=== PATIENT | male | born 1980 | race Two or more races ===

== ENCOUNTER 2021-06-10 08:11 | Outpatient (REF) | payer OTHER, SELFPAY ==
[2021-06-10 08:47] LABS: MANUAL DIFF FLAG NO
[2021-06-10 09:28] LABS: Basophils Percent Auto 0.4 % (0-2); Eosinophils Absolute Auto 0.2 X10*3/uL (0.0-0.4); Eosinophils Percent Auto 2.4 % (0-4); Hematocrit 46.2 % (42.0-52.0); Imm Gran Abs Auto 0.05 X10*3/uL (0.00-0.03); Imm Gran Pct Auto 0.7 % (0.0-0.4); Lymphocytes Absolute Auto 2.1 X10*3/uL (1.2-4.9); Lymphocytes Percent Auto 28.9 % (20-40); Mean Corpuscular HGB Conc 32.5 g/dl (31.0-36.0); Mean Corpuscular Hemoglobin 31.1 pg (27.0-33.0); Mean Corpuscular Volume 95.9 fL (80.0-98.0); Mean Platelet Volume 10.3 fL (9.4-12.4); Monocytes Absolute Auto 0.6 X10*3/uL (0.1-1.2); Monocytes Percent Auto 8.6 % (2-11); Neutrophils Absolute Auto 4.2 x10*3/uL (2.0-8.3); Platelet Count 312 X10*3/uL (160-400); Red Blood Count 4.82 X10*6/uL (4.60-5.80); Red Cell Distribution Width 13.7 % (11.0-16.0); White Blood Count 7.1 X10*3/uL (4.8-10.8)
[2021-06-10 09:58] LABS: Alanine Aminotransferase 69 U/L (0-40); Albumin Level 4.3 g/dL (3.5-5.0); Alkaline Phosphatase 73 U/L (39-117); Anion Gap 15 (12-20); Aspartate Amino Transferase 38 U/L (5-37); Bilirubin Total 0.7 mg/dL (0.0-1.0); Blood Urea Nitrogen 9 mg/dL (9-16); Calcium 9.5 mg/dL (8.4-10.2); Carbon Dioxide 28 mmol/L (22-29); Chloride 99 mmol/L (96-108); Cholesterol 259 mg/dL; Estimated Glomerular Filt Rate > 60; Glucose Fasting 87 mg/dL (60-99); HDL Cholesterol 46 mg/dL; LDL Cholesterol Calculated 152 mg/dl; Potassium 4.2 mmol/L (3.3-5.1); Sodium 138 mmol/L (135-145); Total Protein 7.5 g/dL (6.5-8.0); Triglycerides 307 mg/dL
[2021-06-10 10:19] LABS: TSH reflex Free T4 3.16 uIU/mL (0.32-4.0)
== END 2021-06-10 08:12 | disposition home or self-care (01) ==
LOC: HO.LAB 08:11
PROVIDERS: PCP Nurse Practitioner Family; Visit Provider Nurse Practitioner Family
DX: I10 Essential (primary) hypertension (principal); E78.00 Pure hypercholesterolemia, unspecified; G47.30 Sleep apnea, unspecified; Z76.89 Persons encountering health services in other specified circumstances
CPT/HCPCS: 36415; 80053; 80061; 84443; 85025

== ENCOUNTER 2022-10-28 08:54 | Outpatient (AMB) | payer OTHER, SELFPAY ==
[2022-10-28 08:59] VITALS: BP 128/80; PULSE 71; O2SAT 95; BMI 35.9
--- NOTE | 2022-10-28 08:59 | A.OFFPC_ITS ---
Vital Signs 10/28/22 08:59 Height 5 ft 5.5 in Weight 219 lb 6 oz BMI 35.9 BP 128/80 Blood Pressure Location Lt brachial Position Sitting Pulse 71 Pulse Source Pulse Oximeter Pulse Oximetry (%) 95 Oxygen Delivery Method Room Air Intake Visit Reasons: Transfer of care from [facility] / sleep Apnea Test Allergies No Known Allergies Allergy (Verified 10/28/22 09:09) Medication List - Last Reconciled 10/28/22 by EILEEN Rivera blood pressure monitor As directed Tobacco use date assessed: 10/28/22 HPI HPI Comments History of Present Illness Details 42-year-old male past medical history significant for hypertension, mild anxiety, alcohol abuse and sleep apnea. Patient last seen May 2021, patient presents today for transfer of care. Patient states he is told he snores at night and reports his mom recorded him having a period of apnea while sleeping in April. Denies CP, palpiataions,sob and syncope. Patient reports daily headaches. Left sided chest burning and occasionally a sharp pain, last occurred 1 week ago. patient reports takes a tums and resolved. Will obtain EKG to Further evaluate. 2-3 drinks per month, Patient states stopped one month ago previous drank 5 nips 5 days a week. 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 1. Little interest or pleasure in doing things: not at all 2. Feeling down, depressed, or hopeless: not at all 3. Trouble falling or staying asleep, or sleeping too much: not at all 4. Feeling tired or having little energy: not at all 5. Poor appetite or overeating: not at all 6. Feeling bad about yourself - or that you are a failure or have let yourself or your family down: not at all 7. Trouble concentrating on things, such as reading the newspaper or watching television: not at all 8. Moving or speaking so slowly that other people could have noticed. Or the opposite - being so fidgety or restless that you have been moving around a lot more than usual: not at all 9. Thoughts that you would be better off or of hurting yourself in some way: not at all Total score: 0 Depression Screening Interpretation: Negative 60856 - PHQ-9 Billing: Yes Source: Developed by Drs. Dashawn Chavez, Yanet Martines, Alan Andre and colleagues, with an educational titus from [employer]. Thrive Questionnaire Date Thrive assessed: 10/28/22 I am a: Patient What is your living situation today?: I have a steady place to live Within the past 12 months, did the food you bought not last and you didn't have the money to get more?: Never true Within the past 12 months, did you worry whether your food would run out before you got money to buy more?: Never true AUDIT C Alcohol Use Questionnaire (AUDIT-C) 1. How often do you have a drink containing alcohol?: 2-4 times a month 2. How many drinks containing alcohol do you have on a typical day when you are drinking?: 3 or 4 3. How often do you have six or more drinks on one occasion?: Less than monthly Total Score: 4 SILVERIO-7 AMB Questionnaire SILVERIO-7 Date SILVERIO - 7 assessed: 10/28/22 Feeling nervous, anxious, or on edge: 1 = Several days Not being able to stop or control worryin = Not at all Worrying too much about different things: 0 = Not at all Trouble relaxin = Not at all Being so restless that it is hard to sit still: 0 = Not at all Becoming easily annoyed or irritable: 1 = Several days Feeling afraid as if something awful might happen: 0 = Not at all Total SILVERIO-7 score (0-4 normal; 5-9 mild; 10-14 moderate; 15-21 severe): 2 Source: Developed by Drs. Dashawn Chavez, Yanet Martines, Alan Andre and colleagues, with an educational titus from [employer]. SILVERIO-7 Assessment Billing SILVERIO-7 Assessment Tool: SILVERIO-7 Assessment 71664 Review of Systems Const Denies chills, Denies fatigue, Denies fever(s) and Denies poor appetite Eyes Denies no additional complaints ENT Reports Normal hearing present Card Denies chest pain, Denies syncope, Denies rapid heart rate and Denies dyspnea Resp Denies cough and Denies dyspnea GI Denies change in stool character, Denies constipation, Denies diarrhea, Denies nausea and Denies vomiting Denies dysuria, Denies urinary frequency and Denies urinary urgency Neuro Reports Normal hearing present, Denies confusion and Denies syncope Psych Denies confusion Endo Denies fatigue Physical exam (Primary Care) Vital Signs: Last Vital Signs Pulse 71 10/28/22 08:59 BP 128/80 10/28/22 08:59 Pulse Ox 95 10/28/22 08:59 Oxygen Delivery Method Room Air 10/28/22 08:59 BMI result Body Mass Index 35.9 Tobacco/Smoking Status: Tobacco use Status Tobacco use date assessed 10/28/22 10/28/22 09:04 Patient Tobacco Use Status Former Tobacco user 10/28/22 09:04 e-Cigarette/Vaping Use Never Used 10/28/22 09:04 PHQ-9: PHQ-9 Score PHQ-9: Total score 0 10/28/22 09:04 Depression Screening Interpretation: Negative Thrive Assessment: Date of Thrive Assessment Date Thrive assessed 10/28/22 10/28/22 09:04 Const General: No confusion Orientation/consciousness: No confusion HENMT Head: Yes normocephalic and Yes atraumatic Eyes Conjunctivae: conjunctivae normal Chest Chest palpation & inspection: normal inspection of the chest Resp Effort & Inspection: normal respiratory effort Auscultation: clear to auscultation bilaterally, no crackles, no rhonchi and no wheezes Cardio Rate: regular rate Rhythm: regular rhythm Heart sounds: S1 normal heart sound present and S2 normal heart sound present GI Inspection: Yes normal to inspection Neuro General: No confusion Cranial nerves: Yes Normal hearing present Extrem General: No edema Assessment and Plan Assessment & Plan (1) Essential hypertension: Code(s): I10 - Essential (primary) hypertension Plan: Patient currently taking any blood pressure medication blood pressure 128/80. Follow low-salt diet and exercise. (2) Sleep apnea: Code(s): G47.30 - Sleep apnea, unspecified Plan: Will obtain at-home sleep study to further evaluate for sleep apnea. (3) Dyspepsia: Code(s): R10.13 - Epigastric pain Plan: Avoid the foods that cause that, usually spicy foods, tomato products, juices, coffee, soda and foods that you're sensitive to.? After eating do not lie down, allow 3-4 hours before lying down. And keep the head of the bed above 30 degrees to avoid the acid from going up. Can continue take [id number] Tums as needed, if no improvement follow up with pcp and will consider PPI therapy. (4) Atypical chest pain: Code(s): R07.89 - Other chest pain Plan: Given patient states left-sided chest burning resolved by Tums likely related to dyspepsia. However will obtain EKG to exclude cardiac cause. Save symptoms reviewed with patient when to seek emergency medical attention. Plan Follow-up in 3 months for complete physical exam. Orders: Orders Comprehensive [place]. Panel Fast Today I10 - Essential (primary) hypertension Complete Blood Count Auto Diff Today Z13.0 - Encounter for screening for diseases of the blood and blood-forming organs and certain disorders involving the immune mechanism RT home sleep study Today G47.30 - Sleep apnea, unspecified Hemoglobin A1c Today Z83.3 - Family history of diabetes mellitus Lipid Panel Today Z13.220 - Encounter for screening for lipoid disorders TSH reflex Free T4 Today Z13.29 - Encounter for screening for other suspected endocrine disorder ECG 12 lead EKG Today R07.89 - Other chest pain, R10.13 - Epigastric pain Coding Level of Care Code Est Pt Level 3 (37411) Diagnoses Essential hypertension I10 Sleep apnea G47.30 Dyspepsia R10.13 Atypical chest pain R07.89 Additional Codes SILVERIO-7 Assessment Billing - SILVERIO-7 Assessment Tool: SILVERIO-7 Assessment 61956 ([id number])
== END 2022-10-28 09:28 | disposition home or self-care (01) ==
PROVIDERS: PCP Nurse Practitioner Family; Visit Provider Nurse Practitioner Family
DX: I10 Essential (primary) hypertension (principal); G47.30 Sleep apnea, unspecified; R10.13 Epigastric pain; R07.89 Other chest pain
CPT/HCPCS: 99213

== ENCOUNTER → 2022-11-10 10:00 | Outpatient (REF) | payer OTHER, SELFPAY ==
--- NOTE | 2022-11-10 10:05 | ECG_ITS ---
Test Reason : OTHER CP Blood Pressure : / mmHG Vent. Rate : 070 BPM Atrial Rate : 070 BPM P-R Int : 128 ms QRS Dur : 094 ms QT Int : 430 ms P-R-T Axes : 268 -31 030 degrees QTc Int : 464 ms Unusual P axis and short SD, probable junctional rhythm Left axis deviation Abnormal ECG No previous ECGs available Referred By: Idania Perkins Electronically Signed By:KIMBERLY JOHNSON
== END ==
LOC: HO.CARD 10:00
PROVIDERS: PCP Nurse Practitioner Family; Visit Provider Nurse Practitioner Family
DX: R07.89 Other chest pain (principal); R10.13 Epigastric pain
CPT/HCPCS: 93005

== ENCOUNTER 2022-11-11 08:59 | Outpatient (REF) | payer OTHER, SELFPAY ==
[2022-11-11 09:10] LABS: MANUAL DIFF FLAG NO
[2022-11-11 09:30] LABS: Basophils Percent Auto 0.7 % (0-2); Eosinophils Absolute Auto 0.1 X10*3/uL (0.0-0.4); Eosinophils Percent Auto 1.9 % (0-4); Hematocrit 44.7 % (42.0-52.0); Hemoglobin 15.1 g/dl (14.0-18.0); Imm Gran Abs Auto 0.02 X10*3/uL (0.00-0.03); Imm Gran Pct Auto 0.3 % (0.0-0.4); Lymphocytes Absolute Auto 1.8 X10*3/uL (1.2-4.9); Lymphocytes Percent Auto 31.2 % (20-40); Mean Corpuscular HGB Conc 33.8 g/dl (31.0-36.0); Mean Corpuscular Hemoglobin 30.8 pg (27.0-33.0); Mean Platelet Volume 10.8 fL (9.4-12.4); Monocytes Absolute Auto 0.5 X10*3/uL (0.1-1.2); Monocytes Percent Auto 8.5 % (2-11); Neutrophils Absolute Auto 3.3 x10*3/uL (2.0-8.3); Neutrophils Percent Auto 57.4 % (45-73); Platelet Count 262 X10*3/uL (160-400); Red Blood Count 4.91 X10*6/uL (4.60-5.80); Red Cell Distribution Width 13.4 % (11.0-16.0); White Blood Count 5.8 X10*3/uL (4.8-10.8)
[2022-11-11 09:36] LABS: Estimated Average Glucose 117 mg/dL; Hemoglobin A1c % 5.7 % (<6.0)
[2022-11-11 10:15] LABS: Alanine Aminotransferase 52 U/L (0-40); Albumin Level 4.4 g/dL (3.5-5.0); Alkaline Phosphatase 65 U/L (39-117); Anion Gap 16 (12-20); Aspartate Amino Transferase 39 U/L (5-37); Bilirubin Total 0.7 mg/dL (0.0-1.0); Blood Urea Nitrogen 8 mg/dL (9-16); Calcium 9.6 mg/dL (8.4-10.2); Carbon Dioxide 25 mmol/L (22-29); Chloride 104 mmol/L (96-108); Cholesterol 248 mg/dL (<200); Estimated Glomerular Filt Rate > 60; Glucose Fasting 97 mg/dL (60-99); HDL Cholesterol 39 mg/dL (>40); LDL Cholesterol Calculated 139 mg/dL (<100); Potassium 3.5 mmol/L (3.3-5.1); Sodium 141 mmol/L (135-145); Total Protein 7.7 g/dL (6.5-8.0); Triglycerides 354 mg/dL (<150)
[2022-11-11 10:30] LABS: TSH reflex Free T4 0.55 uIU/mL (0.32-4.0)
== END 2022-11-11 09:00 | disposition home or self-care (01) ==
LOC: HO.LAB 08:59
PROVIDERS: PCP Nurse Practitioner Family; Visit Provider Nurse Practitioner Family
DX: I10 Essential (primary) hypertension (principal); Z13.0 Encounter for screening for diseases of the blood and blood-forming organs and certain disorders involving the immune mechanism; Z13.29 Encounter for screening for other suspected endocrine disorder; Z83.3 Family history of diabetes mellitus; Z13.220 Encounter for screening for lipoid disorders
CPT/HCPCS: 36415; 80053; 80061; 83036; 84443; 85025

== ENCOUNTER → 2022-12-08 10:56 | Outpatient (REF) | payer OTHER, SELFPAY | LOC: HO.SL 10:56 | PROVIDERS: PCP Nurse Practitioner Family; Visit Provider Nurse Practitioner Family | DX: G47.30 Sleep apnea, unspecified (principal) | CPT/HCPCS: 95806 ==

== ENCOUNTER → 2022-12-08 11:05 | Outpatient (BNV) | payer OTHER, SELFPAY | PROVIDERS: PCP Nurse Practitioner Family; Visit Provider Psychiatry & Neurology Neurology | DX: G47.33 Obstructive sleep apnea (adult) (pediatric) (principal) | CPT/HCPCS: 95806 ==

== ENCOUNTER 2022-12-16 09:46 | Outpatient (REF) | payer OTHER, SELFPAY ==
[2022-12-21 16:22] LABS: Metanephrine, Free 87 pg/mL (<=57); Normetanephrines, Free 327 pg/mL (<=148); Total Metanephrine, Free 414 pg/mL (<=205)
== END 2022-12-16 09:47 | disposition home or self-care (01) ==
LOC: HO.LAB 09:46
PROVIDERS: PCP Nurse Practitioner Family; Visit Provider Internal Medicine Cardiovascular Disease
DX: I10 Essential (primary) hypertension (principal); R94.31 Abnormal electrocardiogram [ECG] [EKG]; R00.2 Palpitations; G47.30 Sleep apnea, unspecified
CPT/HCPCS: 36415; 83835; 93005

== ENCOUNTER 2022-12-16 09:46 | Outpatient (AMB) | payer OTHER, SELFPAY ==
--- NOTE | 2022-12-16 09:49 | A.OFFVIS_ITS ---
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 He said about 2 years ago he had come to the emergency room because he was not feeling well at that time was diagnosed with elevated blood pressure. He was then started on amlodipine but started having more symptoms with rapid heart rate at that time he discontinue medicines. Since then he is currently not on any medication but monitors blood pressure at home and notices that sometimes blood pressure is 150/120 at home. However today when he comes here his blood pressure is within normal range. He almost constantly feels that his heart is in overt Dr. And beating rapid. He comes in today and is in sinus tachycardia. He had a sleep study recently which he was not aware of the result but this shows severe sleep apnea. Sleep study was triggered because on a recent vacation with his mom he was noted to have significant sleep disordered breathing. He said he feels very sleepy and fatigued throughout the day when he is working. 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 He has also stopped using alcohol. He denies any other cardiac symptoms of exertional chest pain or shortness of breath. Denies any orthopnea, PND, leg edema. Denies any prolonged irregular heartbeat. 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 [employer] Cognitive needs: No Hearing needs: No Vision needs: Yes (glasses) Review of Systems Const Denies chills, Denies daytime sleepiness, Denies fatigue, Denies fever(s), Denies frequent falls, Denies poor appetite, Denies snoring, Denies stops breathing during sleep, Denies weakness, Denies weight gain and Denies weight loss Eyes Denies loss of vision ENT Denies dizziness and Denies hearing loss Card Denies chest pain, Denies claudication, Denies leg edema, Denies lightheadedness, Denies palpitations, Denies dyspnea, Denies dyspnea on exertion and Denies orthopnea Resp Denies cough, Denies excessive phlegm production, Denies dyspnea, Denies dyspnea on exertion, Denies snoring and Denies wheezing GI Denies abdominal pain, Denies hematochezia, Denies change in bowel habits, Denies nausea and Denies vomiting Denies dysuria and Denies urinary frequency Musc Denies arthralgias, Denies muscle weakness, Denies numbness and Denies other (frequent falls) Skin/Breast Denies nail changes and Denies rash Neuro Denies Abnormal speech present, Denies dizziness, Denies frequent falls, Denies loss of vision, Denies memory loss, Denies numbness and Denies weakness Psych Denies depression and Denies memory loss Endo Denies fatigue and Denies palpitations Levi/Lymph Reports easy bruising and Reports other (anemia) Aller/Immun Denies wheezing Physical Exam Vital Signs: Last Vital Signs Pulse 107 H 12/16/22 09:50 BP 128/84 12/16/22 09:50 BMI result Body Mass Index 36.1 Const General: cooperative, comfortable, no acute distress, alert, awake and tired appearing Nutritional Appearance: obese Orientation/consciousness: patient oriented x3 Limitations: no limitations HEENT Head: Yes normocephalic and Yes atraumatic Neck Neck: Yes trachea midline, Yes supple and Yes no JVD Resp Effort & Inspection: normal respiratory effort Auscultation: clear to auscultation bilaterally Cardio Jugular venous distension: no JVD Palpation: normal PMI Rhythm: regular rhythm Heart sounds: S1 normal heart sound present, S2 normal heart sound present, no click, no gallops, no murmurs and no rubs Peripheral pulses: Peripheral pulses 2+ throughout GI Inspection: Yes obesity Auscultation: normal bowel sounds Skin General skin exam: no rashes or lesions noted Neuro General: patient oriented x3 and no focal motor deficits Speech: No Abnormal speech present Extrem General: Yes no clubbing, cyanosis or edema Office Procedures EKG Details: EKG shows sinus tachycardia with left axis deviation suggestive left anterior fascicular block with incomplete right bundle-branch block with anterior and high lateral T-wave changes could represent RV strain and or LVH with repolarization abnormality [id number], Complete Assessment & Plan Assessment & Plan (1) Abnormal EKG: Code(s): R94.31 - Abnormal electrocardiogram [ECG] [EKG] Plan: Abnormal EKG in this young male could be related to hypertension related changes as well as and possibly RV dilatation and strain pattern related to his untreated sleep apnea. His blood pressure today is well optimized advised to monitor blood pressure at home maintain a log. Advised to bring his blood pressure machine to the office visit to correlate blood pressure changes. At th is point time would like to obtain echocardiogram to evaluate LV systolic and diastolic function to evaluate for LVH as well as RV size and systolic function to evaluate for pulmonary hypertension paced on the EKG. However treatment should be directed to worse treating his significant sleep apnea. See below. (2) Palpitations: Code(s): R00.2 - Palpitations Plan: Patient was having symptoms of palpitation noted to have sinus tachycardia. This is most likely related to his untreated sleep apnea leading to sympathetic activation. Would avoid treating this with medications but guide treatment with underlying sleep apnea. Advised to avoid all stimulants such as caffeine and alcohol in any form. Advised to increase fluid intake. Also advised to watch salt in his diet in will help with his blood pressure management. Will obtain Holter monitor to rule out other arrhythmias such as atrial fibrillation. (3) Sleep apnea: Code(s): G47.30 - Sleep apnea, unspecified Plan: Patient has significant sleep apnea which is is primary health problem at this point time driving his tachycardia as well as high blood pressure. Recommend as per home sleep study was to perform main lab sleep study with CPAP titration. Will also urgently referred to sleep specialty for initiating of treatment. I think he will benefit significantly with management of his sleep apnea. Also advised participate in aggressive weight loss program. Will follow up in the clinic in 4 weeks time, sooner p.r.n.. Thank you for allowing me to partake in his care Orders: Orders RT PSG in-lab sleep titration 1 Day G47.30 - Sleep apnea, unspecified Metanephrines, Plasma Today I10 - Essential (primary) hypertension CA echo transthoracic complete Today R94.31 - Abnormal electrocardiogram [ECG] [EKG] ECG holter monitor 48 hour Today R00.2 - Palpitations Referrals Sleep Medicine Referral G47.30 - Sleep apnea, unspecified Coding Level of Care Code New Pt Level 4 (68713) Diagnoses Abnormal EKG R94.31 Palpitations R00.2 Sleep apnea G47.30 CPT Codes EKG - CPT: 00725-Llergbzkerizxmaxt, Complete ([id number])
[2022-12-16 09:50] VITALS: BP 128/84; PULSE 107; BMI 36.1
== END 2022-12-16 10:15 | disposition home or self-care (01) ==
PROVIDERS: PCP Nurse Practitioner Family; Visit Provider Internal Medicine Cardiovascular Disease
DX: R94.31 Abnormal electrocardiogram [ECG] [EKG] (principal); R00.2 Palpitations; G47.30 Sleep apnea, unspecified
CPT/HCPCS: 93010; 99204

== ENCOUNTER 2022-12-24 13:09 | Outpatient (AMB) | payer OTHER, SELFPAY ==
[2022-12-24 13:15] VITALS: BP 126/70; PULSE 99; O2SAT 94; BMI 36.2
--- NOTE | 2022-12-24 13:15 | MHC.OFFVIS ---
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 He was referred by cardiology for pulmonary evaluation after home sleep study revealed an AHI of 43 with nocturnal hypoxemia. He reports significant daytime fatigue, morning headaches and witnessed apneas. He is also in the process of a cardiac evaluation, awaiting echo and holter monitor, which are scheduled in the next few weeks. He reports intermittent dyspnea with moderate exertion, otherwise denies any respiratory symptoms. He denies any personal history of respiratory conditions. He reports mother with NIEVES, denies any other pertinent family history. 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 Cognitive needs: No Hearing needs: No Vision needs: Yes (glasses) Review of Systems Const Denies chills, Denies excessive sweating, Denies fever(s), Denies headache(s) and Denies night sweats Eyes Denies dry eyes, Denies irritation and Denies itchy eyes ENT Reports Normal hearing present and Denies headache(s) Card Denies chest pain, Denies chest pain at rest, Denies chest pain with activity, Denies claudication, Denies leg edema, Denies dyspnea, Denies orthopnea and Denies paroxysmal nocturnal dyspnea Resp Denies chest congestion, Denies cough, Denies excessive phlegm production, Denies pain on inspiration, Denies pain with cough, Denies dyspnea, Denies stridor and Denies wheezing Musc Denies myalgias Neuro Reports Normal hearing present and Denies headache(s) Endo Denies excessive sweating Levi/Lymph Denies lymphadenopathy Aller/Immun Denies itchy eyes, Denies seasonal rhinorrhea and Denies wheezing Physical Exam Vital Signs: Last Vital Signs Pulse 99 12/24/22 13:15 BP 126/70 12/24/22 13:15 Pulse Ox 94 12/24/22 13:15 Oxygen Delivery Method Room Air 12/24/22 13:15 BMI result Body Mass Index 36.2 Const General: cooperative, healthy appearing, comfortable, no acute distress, well developed and alert Nutritional Appearance: obese Orientation/consciousness: patient oriented x3 Limitations: no limitations HEENT Head: Yes normal to inspection, Yes normocephalic and Yes atraumatic Ears: hearing grossly normal bilaterally and external ears normal Eyes General: appearance normal, both eyes and all related structures Eyelids: Yes eyelids normal Sclerae: sclerae normal EOM: EOMs intact bilaterally Neck Neck: Yes normal visual inspection and Yes no lymphadenopathy Lymphatic: no lymphadenopathy noted Chest Chest palpation & inspection: normal inspection of the chest Resp Effort & Inspection: normal respiratory effort, able to speak in complete sentences, no audible wheezes, no cough, no stridor, not tachypneic, no tripod positioning and no use of accessory muscles Auscultation: clear to auscultation bilaterally Cardio Jugular venous distension: no JVD Rate: regular rate Rhythm: regular rhythm Skin Other: warm, dry General skin exam: no rashes or lesions noted Neuro General: patient oriented x3 Cranial nerves: Yes Normal hearing present Cognition (Neuro): normal cognition Gait exam (Neuro): Normal gait present Extrem General: Yes normal to inspection, Yes capillary refill normal, Yes no clubbing, cyanosis or edema and Yes no pedal edema Psych Appearance: grossly normal and well kempt Speech and movement: Normal speech and movement present and Clear speech present Affect: normal affect Attitude: cooperative Thought process: Normal thought process present Thought content: Normal thought content present Insight: Good insight present (Psych) Judgement: Good judgement present (Psych) Results Reviewed Results Reviewed: Assessment & Plan Assessment & Plan (1) Severe obstructive sleep apnea: Comment: with nocturnal hypoxemia, average O2 76% Code(s): G47.33 - Obstructive sleep apnea (adult) (pediatric) (2) Dyspnea on exertion: Code(s): R06.09 - Other forms of dyspnea (3) Obesity (BMI 30-39.9): Code(s): E66.9 - Obesity, unspecified Plan Reviewed sleep study results with patient which revealed an AHI of 43, severe obstructive sleep apnea, with an average oxygen saturation of 76%, lowest 46%. Given the severity, combined with persistent nocturnal hypoxemia, an in lab titration study is recommended and has been ordered already by cardiology. This is scheduled in 4 weeks. Discussed the effects of untreated sleep apnea and importance of compliance with CPAP therapy. Will also send for PFT to evaluate for any underlying chronic respiratory disease. Discussed importance of weight loss and management of hypertension. All questions were answered and patient is in agreement of plan. Will follow up with patient after to review results and start on CPAP therapy. Orders: Orders PFT pulmonary function test Today R06.09 - Other forms of dyspnea Coding Level of Care Code New Pt Level 4 (84626) Diagnoses Severe obstructive sleep apnea G47.33 Dyspnea on exertion R06.09 Obesity (BMI 30-39.9) E66.9
== END 2022-12-24 13:47 | disposition home or self-care (01) ==
LOC: HO.HPSW 13:09
PROVIDERS: PCP Nurse Practitioner Family; Referring Provider Nurse Practitioner Family; Visit Provider Nurse Practitioner Family
DX: G47.33 Obstructive sleep apnea (adult) (pediatric) (principal); R06.09 Other forms of dyspnea; E66.9 Obesity, unspecified
CPT/HCPCS: 99204

== ENCOUNTER → 2022-12-24 13:09 | Outpatient (BNVA) | payer OTHER, SELFPAY | PROVIDERS: PCP Nurse Practitioner Family; Visit Provider Nurse Practitioner Family ==

== ENCOUNTER 2022-12-30 10:20 | Outpatient (AMB) | payer OTHER, SELFPAY ==
--- NOTE | 2022-12-30 10:42 | A.OFFVIS_ITS ---
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 Patient states I just got diagnosed with sleep apnea. Allergies No Known Allergies Allergy (Verified 12/30/22 10:44) HPI HPI Comments History of Present Illness Details 42 y/o male patient presents for new in- person visit to manage sleep apnea. Pt had a home sleep study done. The home sleep study result was significant for severe degree of sleep apnea. The total AHI was 43/hr and also there is persistent nocturnal hypoxemia with average O2 sat 76%. Pt was told that urgent CPAP titration study and CPAP ordered. Pt was also evaluated by garnett machine operator helper and pulmonary function test ordered. Pt reports difficulty staying sleep, he wakes up frequently with gasping and urination. He reports non refreshing sleep with daytime sleepiness. Sleep questionnaire: Have you ever been diagnosed with a sleep disorder? Yes. Have you ever had a sleep study in the past? Yes. Have you ever been treated for a sleep disorder? Yes, but CPAP ordered. Do you take medications for a sleep disorder? No. Do you snore? Yes. Do you wake up gasping at night? Yes. Do you have episodes of apneas? Yes. If yes, are they witnessed? Yes. Do you have episodes of nocturnal chest pain or dyspnea? Yes. Do you have difficulty initiating sleep? Yes. Do you have difficulty maintaining sleep? Yes. Do you wake up tired? Yes. Do you have headaches upon awakening? Yes. Do you wake up with dry mouth or throat? Yes. Do you have GERD? Yes. Do you have nocturia? Yes. Do you have nocturnal leg cramps? Yes. Do you have symptoms of restless legs? No. Do you act out your dreams? No. Sleep hygiene questionnaire: What is your usual sleep routine? Usual bedtime is at 9 am; Usual wake up time is at 10 pm. Do you take naps? No. Is your sleep environment cool, dark, and quiet? Yes. Do you exercise? No. Do you take caffeine or other stimulants? No. Do you use electronics in bed? Yes for calming sound. What is your work schedule? 11 pm to 7 am. Hypersomnolence questionnaire: Do you have daytime tiredness or fatigue? Yes. Do you easily fall asleep when inactive? Yes. Have you ever had episodes of sudden weakness? No. Have you ever had episodes of sudden weakness associated with strong emotions? No. PFSH Surgical History No pertinent past surgical history Family History Mother Sleep apnea Father Diabetes Other Substance use disorder Social History Housing: Apartment Alcohol intake: current Alcohol intake frequency: a few times a month Patient Tobacco Use Status: Former Tobacco user Quit Date: 2015 Tobacco use type: Cigar e-Cigarette/Vaping Use: Never Used Second Hand Smoke Exposure: No service: No Current occupational status: employed Current occupation: [employer] Cognitive needs: No Hearing needs: No Vision needs: Yes (glasses) Review of Systems Const All systems reviewed & are unremarkable except as noted in HPI and below ENT Reports Normal hearing present Neuro Reports Normal hearing present Physical Exam Vital Signs: Last Vital Signs BP 138/100 H 12/30/22 10:45 BMI result Body Mass Index 36.2 Const General: cooperative and tired appearing Nutritional Appearance: obese Orientation/consciousness: patient oriented x3 Neck Neck: Yes full ROM and Yes supple Resp Effort & Inspection: normal respiratory effort and able to speak in complete sentences Neuro General: patient oriented x3, gait normal and moves all extremities Cranial nerves: Yes Bilaterally intact EOM present, Yes Normal facial strength present, Yes Midline tongue present, Yes Symmetric palate elevation present, Yes Normal hearing present, Yes Ability to bilaterally rotate head present and Yes Ability to bilaterally elevate shoulders present Cognition (Neuro): normal cognition Motor exam (neuro): 5/5 motor strength present throughout, Pronator motor function not present and no tremor noted Psych Appearance: grossly normal Mental Status: mental status grossly normal Speech and movement: Normal speech and movement present Affect: normal affect Attitude: cooperative Assessment & Plan Assessment & Plan (1) Obesity (BMI 30-39.9): Code(s): E66.9 - Obesity, unspecified (2) Dyspnea on exertion: Code(s): R06.09 - Other forms of dyspnea (3) Severe obstructive sleep apnea: Comment: with nocturnal hypoxemia, average O2 76% Code(s): G47.33 - Obstructive sleep apnea (adult) (pediatric) Plan Advised patient to undergo CPAP titration study. Continue to follow with garnett machine operator helper to manage sleep apnea with nocturnal hypoxemia. Sleep hygiene education provided. Advised patient to try magnesium 400 mg qHS to help him sleep better and legs muscle cramps. Medications: New magnesium oxide 400 mg PO BEDTIME 30 days 30 tabs 3RF Coding Level of Care Code New Pt Level 3 (11845) Diagnoses Obesity (BMI 30-39.9) E66.9 Dyspnea on exertion R06.09 Severe obstructive sleep apnea G47.33
[2022-12-30 10:45] VITALS: BP 138/100; BMI 36.2
== END 2022-12-30 11:11 | disposition home or self-care (01) ==
LOC: HO.HSMC 10:21
PROVIDERS: PCP Nurse Practitioner Family; Visit Provider Nurse Practitioner Family
DX: E66.9 Obesity, unspecified (principal); R06.09 Other forms of dyspnea; G47.33 Obstructive sleep apnea (adult) (pediatric)
CPT/HCPCS: 99203

== ENCOUNTER → 2022-12-30 10:20 | Outpatient (BNVA) | payer OTHER, SELFPAY | PROVIDERS: PCP Nurse Practitioner Family; Visit Provider Nurse Practitioner Family ==

== ENCOUNTER → 2023-01-19 12:58 | Outpatient (REF) | payer OTHER, SELFPAY ==
--- NOTE | 2023-01-19 13:05 | HM_ITS ---
Conclusion: 1. Patient was monitored for total period of 1 day and 23 hours 2. Baseline was normal sinus rhythm with average heart of 79 beats per minute 3. No significant pauses noted 4. Occasional PACs noted 5. Patient reported 1 symptom of left arm pain that correlated with sinus rhythm MTDD
--- NOTE | 2023-01-19 13:05 | CA_ITS ---
Transthoracic Echocardiogram Patient (Last, First, Middle): Chico Varela, Gender: Male Date of : 1980 Age: 42 Procedure Date: 01/19/2023 Procedure Type: Transthoracic Echocardiogram Location: OP Height: 165.1 cm Weight: 99.79 kg BSA: 2.06 m2 Heart Rate: bpm BP: 130 / 90 mmHg Supervisor Drying: ALEX Referring MD: Rancho Galaviz MD Master Welder: Rancho Galaviz MD Symptoms: R94.31 - Abnormal electrocardiogram [ECG] [EKG] Study Quality: Fair ECG Rhythm: Sinus Conclusions: - 1. Normal LV ejection fraction 60 65% with mild LVH with impaired relaxation filling pattern 2. Normal cardiac valvular Doppler 3. Normal RV systolic pressure 4. Mildly dilated ascending aorta at 3.9 cm 5. No gross pericardial effusion Findings Left Ventricle Normal left ventricular size and systolic function. There is mildly increased left ventricular wall thickness. The visually estimated ejection fraction is between 60-65%. Spectral Doppler is indicative of an impaired relaxation filling pattern. E/E prime ratio is between 8 and 15 consistent with indeterminate filling pressures. Right Ventricle Normal right ventricular cavity size and systolic function. Atria Both atria are normal in size. There is no evidence of interatrial shunt. Aortic Valve Normal aortic valve structure and function. There is no aortic valve stenosis. There is no aortic valve regurgitation. Mitral Valve Normal mitral valve structure and function. There is trace mitral valve regurgitation. There is no mitral valve stenosis. Pulmonic Valve The pulmonic valve is likely normal. There is trace pulmonic valve regurgitation. Tricuspid Valve Normal tricuspid valve structure. There is mild tricuspid valve regurgitation. The right ventricular systolic pressure is normal. The right ventricular systolic pressure is 31 mmHg. Normal right atrial pressure. There is no evidence of pulmonary hypertension. Great Vessels The pulmonary artery was not well visualized. There is mild dilatation of the ascending aorta measuring 3.90 cm. Venous The inferior vena cava is normal in size and collapses greater than 50% with inspiration. Pericardium/Pleural There is no evidence of pericardial effusion. Prior Study Comparison No prior study available for comparison. Measurements 2D Linear Measurements IVSd: 1.26 0.6-0.9/0.6-1.0 cm LVIDd: 5.28 3.9-5.3/4.2-5.9 cm LVIDd Index: 2.56 2.4-3.2/2.2-3.1 cm/m2 LVIDs: 3.37 2.0-3.6 cm LVPWd: 1.20 0.7-1.1 cm LA Diam: 4.00 2.7-3.8/3.0-4.0 cm LAIDs Index: 1.94 1.5-2.3 cm/m2 LV Mass: 329.15 67-162/88-224 g LV Mass Index: 159.78 43-95/49-115 g/m2 LVOT Diam: 2.10 3.0+(-)1.3 cm 2D Systolic Function EF 4C: 62.70 >55% EF 2C: 65.10 >55% EF BiP: 63.40 >55% Mitral Valve MV Pk E: 0.88 MV PK A: 0.77 MV Decel Time: 180.00 E/A: 1.20 E'Lateral: 7.62 E'Medial: 5.77 E/E' Med: 15.30 E/E' Lat: 11.60 PHT: 53.00 MVA PHT: 4.15 Decel Russell: 4.92 Aortic Valve AoV Pk Sang: 1.62 AoV Mn Sang: 0.97 AoV VTI: 0.31 AoV Pk Grad: 10.00 Aov Mn Grad: 5.00 TERESITA Cont.VTI: 2.33 LVOT LVOT Pk Sang: 0.97 LVOT Mn Sang: 0.67 LVOT VTI: 0.21 LVOT Pk Grad: 4.00 LVOT Mn Grad: 2.00 LVOT Diam: 2.10 LVOT Area: 3.46 Diastolic Function MV Pk E: 0.88 MV Pk A: 0.77 E/A: 1.20 E'Medial: 5.77 E/E' Med: 15.30 E' Laterial: 7.62 E/E' Lat: 11.60 Right Ventricle TAPSE (mm): 22.30 TVS' Sang: 13.40 Tricuspid Valve TR Pk Sang: 2.40 TR Pk Grad: 23.00 RA Press: 8.00 RVSP: 31.00 Great Vessels Aorta Sinus of Valsalva: 3.77 2.0-3.[address] [place]: 2.95 1.7-3.4 cm Ao Asc: 3.90 2.1-3.4 cm Updated in Other Vendor System with Status of Final Rancho Galaviz MD electronically signed on 01/19/2023 4:51:37 PM with status of Final
== END ==
LOC: HO.CARD 12:58
PROVIDERS: PCP Nurse Practitioner Family; Visit Provider Internal Medicine Cardiovascular Disease
DX: R00.2 Palpitations (principal); R94.31 Abnormal electrocardiogram [ECG] [EKG]
CPT/HCPCS: 93225; 93306

== ENCOUNTER → 2023-01-19 13:05 | Outpatient (BNV) | payer OTHER, SELFPAY | PROVIDERS: PCP Nurse Practitioner Family; Visit Provider Internal Medicine Cardiovascular Disease | DX: I49.1 Atrial premature depolarization (principal) | CPT/HCPCS: 93227; 93306 ==

== ENCOUNTER → 2023-01-19 19:30 | Outpatient (BNV) | payer OTHER, SELFPAY | PROVIDERS: PCP Nurse Practitioner Family; Visit Provider Psychiatry & Neurology Neurology | DX: G47.33 Obstructive sleep apnea (adult) (pediatric) (principal) | CPT/HCPCS: 95811 ==

== ENCOUNTER → 2023-01-19 19:30 | Outpatient (REF) | payer OTHER, SELFPAY | LOC: HO.SL 19:30 | PROVIDERS: PCP Nurse Practitioner Family; Visit Provider Internal Medicine Cardiovascular Disease | DX: G47.30 Sleep apnea, unspecified (principal) | CPT/HCPCS: 95811 ==

== ENCOUNTER 2023-02-08 07:40 | Emergency (ER) | payer OTHER, SELFPAY ==
--- NOTE | ~2023-02-08 | CT_ITS ---
Examination: CT GI bleed. Abdomen pelvis with and without IV contrast with delayed imaging. CLINICAL INDICATION: GI bleed. TECHNIQUE: 5 mm thin axial images of abdomen pelvis without and with IV however mL Omnipaque 350 were obtained. 2 minute delayed images were obtained through the abdomen and pelvis. 2 minutes thin sagittal and coronal reconstructions are performed. DLP [id number]. This CT examination was performed using dose optimization technique as appropriate, variously including the following: Automated exposure control Adjustment of MA and/or KV according to patient size(this includes techniques or standardized protocols for targeted exams where dose is matched to indication/reason for exam; extremities or head. Use of iterative reconstruction techniques. FINDINGS: Lung bases: There is minimal subsegmental atelectasis right lung base. Heart size is normal. Liver, ducts and gallbladder: The liver is normal size, shape and contour. No focal lesion seen. No intrahepatic ductal dilatation. The density is normal. The gallbladder is unremarkable. Spleen: Unremarkable. Pancreas: Unremarkable. Adrenal glands: Unremarkable. Kidneys and ureters: Both kidney nephrograms are symmetrical and normal. No radiopaque renal calculi or hydronephrosis seen. A nonenhancing 2.2 cm cyst midpole left kidney. Lymphovascular structures: The abdominal aorta is of normal caliber. There are small shotty lymph nodes in the jaren hepatis and along the celiac axis GI tract: There is scattered diverticuli and stool seen throughout the colon without mural thickening or diverticulitis. The small bowel loops are normal caliber. Appendix is normal caliber. There is no intraluminal contrast extravasation to suspect GI bleed Abdominal wall: Unremarkable. Pelvis: The bladder is slightly prominent without bladder wall thickening or radiopaque calculi. The prostate gland is normal size. No abnormal pelvic lymphadenopathy. Osseous structures: Unremarkable. CT/CT gi bleed abd pel wo/w IVcon IMPRESSION: No intraluminal extravasation of IV contrast seen to suspect any site of GI bleed. There is diffuse colonic diverticulosis without diverticulitis. Mild constipation.
[2023-02-08 07:43] VITALS: BP 137/96; PULSE 87; RESP 16; TEMP 36.6; O2SAT 97; BMI 36.6
--- NOTE | 2023-02-08 07:50 | ED_ITS ---
HPI - GI Bleed General Chief complaint: GI Bleed Stated complaint: Bleeding Time Seen by Provider: 02/08/23 07:47 Source: patient and old records reviewed Mode of arrival: ambulatory Limitations: no limitations History of Present Illness HPI Narrative: 42 yo male with PMH of anxiety, HTN, HLD, alcohol abuse, NIEVES, here with c/o brb without clots x 3 since last night not large amounts did not fill the toilet. In bowl and toilet paper, no clots. No hx of GIB. No aspirin or blood thinners. No prior colonoscopy or family hx of colon cancer. The patient has had 3 bouts but they are small. MD complaint: gross hematochezia Onset (ago): day(s) (last night at 1020pm first episode) Severity: mild Relieving factors: none Exacerbating factors: none Associated symptoms: denies other symptoms Treatments Prior to Arrival: none Related Data Previous Rx's Medication Instructions Recorded blood pressure monitor #1 ea 01/05/23 magnesium oxide 400 mg PO BEDTIME 30 days #30 tabs 01/28/23 docusate sodium 100 mg capsule 100 mg PO BID #14 caps 02/08/23 (DOK) Allergies Allergy/AdvReac Type Severity Reaction Status Date / Time No Known Allergies Allergy Verified 02/08/23 07:43 Review of Systems 2 Review of Systems: Constitutional : No Weight loss, No Fever, No Chills ENT/Mouth : No sore throat, No Rhinorrhea Eyes: No Swelling, No Redness Cardiovascular : No Chest Pain, No SOB, NoEdema Respiratory : No Cough, No Sputum, No Wheezing Gastrointestinal : no Nausea, no Vomiting, no Diarrhea, no abdominal Pain, pos Hematochezia, No Melena Genitourinary : No Dysuria, No Urinary Frequency, No Hematuria, No Urgency Musculoskeletal : No joint pain, No Myalgias, No Joint Swelling Skin : No Skin Lesions, No rash Neuro : No Weakness, No Numbness, No Dizziness, No Headache Psych : No Anxiety/Panic, No Depression All other systems reviewed and are negative. [facility] Past Medical History Attestation statement: The following information was validated with the patient. Source: old records reviewed Medical History Obesity (BMI 30-39.9) Hypercholesteremia Junctional cardiac arrhythmia Low back pain Elevated LFTs Mild anxiety Alcohol abuse Essential hypertension Sleep apnea Surgical History No pertinent past surgical history Family History Family History Mother Sleep apnea Father Diabetes Other Substance use disorder Social History Housing: Apartment Alcohol intake: current Alcohol intake frequency: holidays/special occasions only Patient Tobacco Use Status: Former Tobacco user Quit Date: 2015 Tobacco use type: Cigar Smoked in Last 30 Days: Yes e-Cigarette/Vaping Use: Never Used Second Hand Smoke Exposure: No Use of substances other than those prescribed or required for medical reasons: No Advance Directives: Yes Advance Directives Information Provided: Yes Advance Directives on File: No service: No Current occupational status: employed Current occupation: [employer] Cognitive needs: No Hearing needs: No Vision needs: Yes (glasses) Physical Exam 2 Vital Signs: Vital Signs: Last Vital Signs Temp 98.0 F 02/08/23 09:53 Pulse 77 02/08/23 09:53 Resp 16 02/08/23 09:53 BP 109/72 02/08/23 09:53 Pulse Ox 98 02/08/23 09:53 O2 Del Method Room Air 02/08/23 09:53 BMI result Body Mass Index 36.6 Appearance: Alert. Oriented X3. No acute distress. Eyes: Pupils equal, round and reactive to light. ENT: Pharynx normal. Neck: Normal inspection. Neck supple. CVS: Normal heart rate and rhythm. Pulses normal. Respiratory: No respiratory distress. Breath sounds normal. Abdomen: Soft and nontender. Rectal: internal hemorrhoids felt, mucous noted with scant pink feeling Skin: Skin warm and dry. Normal skin color. Normal skin turgor. Extremities: No lower extremity edema. No calf ttp Neuro: Oriented X 3. No motor deficit. No sensory deficit. Medications Administered Discontinued Medications Generic Name Dose Route Start Last Admin Trade Name Freq PRN Reason Stop Dose Admin Iohexol 85 ml 02/08/23 09:26 02/08/23 09:26 Iohexol 350 Mg/Ml 100 Ml Infus..Btl IV 02/08/23 09:27 85 ml ONCE ONE Administration Medical Decision Making Medical Decision Making MDM Narrative: 42 yo male with PMH of anxiety, HTN, HLD, alcohol abuse, NIEVES, here with c/o brb per rectum without abdominal pain, thinners or aspirin. He is not toxic appearing did have straining beforehand this could possibly be irritated internal hemorrhoids vs diverticular bleed. At this time H/H ordered, CT gi bleed protocol. He has benign abdominal exam, no hx of GIB, family colon cancer, or prior colonoscopy in the patient. Differential Diagnosis Differential Diagnoses: The differential diagnosis associated with the presentation includes hemorrhoids, diverticular bleed Admission/Observation Consideration of admission/observation: Escalation of care including admission/observation considered VS stable, H/H stable, no active bleeding suspect internal hemorrhoids. Lab Data [facility] Lab Attestation statement: I reviewed the patient's lab results. 02/08/23 08:05 02/08/23 08:05 Labs: Lab Results 02/08/23 02/08/23 Range/Units 08:05 08:06 WBC 7.6 (4.8-10.8) X10*3/uL RBC 5.38 (4.60-5.80) X10*6/uL Hgb 16.5 (14.0-18.0) g/dl Hct 49.6 (42.0-52.0) % MCV 92.2 (80.0-98.0) fL MCH 30.7 (27.0-33.0) pg MCHC 33.3 (31.0-36.0) g/dl RDW 14.0 (11.0-16.0) % Plt Count 410 H D (160-400) X10*3/uL MPV 10.0 (9.4-12.4) fL Immature Gran % (Auto) 0.5 H (0.0-0.4) % Neut % (Auto) 50.3 (45-73) % Lymph % (Auto) 41.2 H (20-40) % [place] % (Auto) 5.3 (2-11) % Eos % (Auto) 1.6 (0-4) % Baso % (Auto) 1.1 (0-2) % Lymph # (Auto) 3.1 (1.2-4.9) X10*3/uL [place] # (Auto) 0.4 (0.1-1.2) X10*3/uL Eos # (Auto) 0.1 (0.0-0.4) X10*3/uL Baso # (Auto) 0.1 (0.0-0.2) X10*3/uL Abs Immat Gran (auto) 0.04 H (0.00-0.03) X10*3/uL Absolute Neuts (auto) 3.8 (2.0-8.3) x10*3/uL Absolute Nucleated RBC 0.000 (0.0-0.012) X10*3/uL Nucleated RBC % (auto) 0.0 (0.0-0.2) /100WBC Hold Blue Top SEE NOTE Sodium 143 (135-145) mmol/L Potassium 4.1 (3.3-5.1) mmol/L Chloride 107 (96-108) mmol/L Carbon Dioxide 25 (22-29) mmol/L Anion Gap 15 (12-20) BUN 8 L (9-16) mg/dL Creatinine 0.89 (0.5-1.4) mg/dL Estim Creat Clear Calc 117.4 Estimated GFR > 60 Random Glucose 112 (60-115) mg/dL Calcium 9.5 (8.4-10.2) mg/dL Magnesium 2.3 (1.6-2.6) mg/dL Total Bilirubin 0.2 (0.0-1.0) mg/dL Direct Bilirubin < 0.2 (0.0-0.5) mg/dL AST 61 H (5-37) U/L ALT 78 H (0-40) U/L Alkaline Phosphatase 78 (39-117) U/L Total Protein 8.6 H (6.5-8.0) g/dL Albumin 4.4 (3.5-5.0) g/dL Lipase 21 (8-78) U/L Stool Occult Blood POSITIVE (NEGATIVE) Independent Interpretation I performed an independent interpretation of an: CT Scan (no active GI bleed) Radiology Impression Discussion of test interpretation with radiology: I have reviewed the radiologist's reading. External Record Review External record reviewed: Inpatient record Prescription Management I considered prescription management with: Other Discharge Plan Discharge Clinical Impression: Hematochezia, Bleeding internal hemorrhoids Patient Disposition: Home, Self-Care Instructions: Hemorrhoids (ED), Rectal Bleeding (ED) Additional Instructions: no aspirin, tylenol is okay. you need to take a stool softener over the counter. you will need a colonoscopy as well please call the GI doctor given to you. return for pain, worsening bleeding with clots - you might have some small residual bleeding over the next day but it should not worsen. drink plenty of fluids. do not strain. return for worsening bleeding, pain or any other concerns. CT scan shows no active bleeding Prescriptions: New docusate sodium [DOK] 100 mg capsule 100 mg PO BID Qty: 14 0RF No Action (DME) blood pressure monitor Kit See Rx Instructions .Route Qty: 1 0RF Rx Instructions: As directed magnesium oxide 400 mg magnesium tablet 400 mg PO BEDTIME 30 Days Qty: 30 3RF Referrals: Bertha Lew MD [Physician] - (call for outpatient appointment and colonoscopy) Stand Alone Forms: Work/School Release Interventions: ED Discharge Assessment Last Done: 02/08/23 10:41 Discharge Date/Time: 02/08/23 10:48
[2023-02-08 08:11] LABS: MANUAL DIFF FLAG NO
[2023-02-08 08:12] LABS: OBS Int Ctl Valid YES; OBS1 POSITIVE (NEGATIVE)
[2023-02-08 08:13] LABS: Basophils Absolute Auto 0.1 X10*3/uL (0.0-0.2); Basophils Percent Auto 1.1 % (0-2); Eosinophils Absolute Auto 0.1 X10*3/uL (0.0-0.4); Eosinophils Percent Auto 1.6 % (0-4); Hematocrit 49.6 % (42.0-52.0); Hemoglobin 16.5 g/dl (14.0-18.0); Imm Gran Abs Auto 0.04 X10*3/uL (0.00-0.03); Imm Gran Pct Auto 0.5 % (0.0-0.4); Lymphocytes Absolute Auto 3.1 X10*3/uL (1.2-4.9); Lymphocytes Percent Auto 41.2 % (20-40); Mean Corpuscular HGB Conc 33.3 g/dl (31.0-36.0); Mean Corpuscular Hemoglobin 30.7 pg (27.0-33.0); Mean Corpuscular Volume 92.2 fL (80.0-98.0); Monocytes Absolute Auto 0.4 X10*3/uL (0.1-1.2); Monocytes Percent Auto 5.3 % (2-11); Neutrophils Absolute Auto 3.8 x10*3/uL (2.0-8.3); Neutrophils Percent Auto 50.3 % (45-73); Platelet Count 410 X10*3/uL (160-400); Red Blood Count 5.38 X10*6/uL (4.60-5.80); White Blood Count 7.6 X10*3/uL (4.8-10.8)
[2023-02-08 08:39] LABS: Alanine Aminotransferase 78 U/L (0-40); Albumin Level 4.4 g/dL (3.5-5.0); Alkaline Phosphatase 78 U/L (39-117); Anion Gap 15 (12-20); Aspartate Amino Transferase 61 U/L (5-37); Bilirubin Direct < 0.2 mg/dL (0.0-0.5); Bilirubin Total 0.2 mg/dL (0.0-1.0); Blood Urea Nitrogen 8 mg/dL (9-16); Calcium 9.5 mg/dL (8.4-10.2); Carbon Dioxide 25 mmol/L (22-29); Chloride 107 mmol/L (96-108); Creatinine Clr Calc Pharmacy 117.4; Estimated Glomerular Filt Rate > 60; Glucose Random 112 mg/dL (60-115); Lipase 21 U/L (8-78); Magnesium 2.3 mg/dL (1.6-2.6); Potassium 4.1 mmol/L (3.3-5.1); Sodium 143 mmol/L (135-145); Total Protein 8.6 g/dL (6.5-8.0)
--- NOTE | 2023-02-08 09:10 | PC.NURSE ---
pt to CT at this time.
[2023-02-08] MEDS: iohexoL 350 MG/ML 100 ML INFUS..BTL 85 ML IV (09:26)
--- NOTE | 2023-02-08 09:35 | PC.NURSE ---
pt returned from CT. per pt's request - primary contact called/given status update on pt. pt resting and in no apparent distress at this time. awaiting for CT results. call hector placed within reach.
[2023-02-08 09:53] VITALS: BP 109/72; PULSE 77; RESP 16; TEMP 36.7; O2SAT 98
== END 2023-02-08 10:48 | disposition home or self-care (01) ==
PROVIDERS: Emergency Provider Emergency Medicine
DX: K64.8 Other hemorrhoids (principal); K92.1 Melena; Z87.891 Personal history of nicotine dependence; Z79.899 Other long term (current) drug therapy
CPT/HCPCS: 36415; 74178; 80048; 80076; 82272; 83690; 83735; 85025; 99284; Q9967

== ENCOUNTER 2023-03-05 12:52 | Outpatient (AMB) | payer OTHER, SELFPAY ==
[2023-03-05 12:55] VITALS: BP 132/80; BMI 36.6
--- NOTE | 2023-03-05 12:55 | A.OFFPC_ITS ---
Vital Signs 03/05/23 12:55 Height 5 ft 5 in Weight 220 lb BMI 36.6 BP 132/80 Blood Pressure Location Lt brachial Position Sitting Intake Visit Reasons: transfer care from [place]/CPAP results Intake Note: Patient here transferring of care, Cpap results Penetration Tester Required: No Accompanied by: Self / Same As Patient Allergies No Known Allergies Allergy (Verified 03/05/23 13:08) Medication List - Last Reconciled 03/05/23 by Melinda Denny MD blood pressure monitor As directed magnesium oxide 400 mg PO BEDTIME 30 days Tobacco use date assessed: 10/28/22 Dental Screening Dental Screen Date: 03/05/23 Did you have a dental visit in the last 12 months?: Yes Did you have a dental problem in the last 6 months where you did not have access to dental care?: No Was dental information given to patient?: Patient has dentist HPI HPI Comments History of Present Illness Details This is a 42-year-old male with obesity, obstructive sleep apnea and mixed hyperlipidemia that comes today for follow-up on recent labs and sleep ambar dy titration results. Cholesterol and triglycerides are both elevated and dietary changes were advised. He has [place] risk score of having a heart attack or stroke in the next 10 years is 4.1% therefore no need for statins at the moment. He is obese with a BMI of 36.6 and was advised to do diet and exercise as tolerated. Titration results show obstructive sleep apnea and recommend a bilevel machine that will be faxed to [facility] today. No chest pain or shortness of breath. Has mild transaminitis and denies jaundice. Said that he used to drink about 5 nips of alcohol per day and stop drinking alcohol. I recommended to cut down on drinking alcohol to about [address] scan of abdomen and pelvis done in January 2023 did not show any significant abnormality in the liver. Liver enzymes will be repeated in 6 months as well as lipid panel. [facility] Medical History (Updated 03/05/23 @ 13:30 by Melinda Denny MD) Obesity (BMI 30-39.9) Hypercholesteremia Junctional cardiac arrhythmia Low back pain Elevated LFTs Mild anxiety Alcohol abuse Essential hypertension Sleep apnea Surgical History No pertinent past surgical history Family History Mother Sleep apnea Father Diabetes Other Substance use disorder Social History Housing: Apartment Alcohol intake: current Alcohol intake frequency: holidays/special occasions only Patient Tobacco Use Status: Former Tobacco user Quit Date: 2015 Tobacco use type: Cigar e-Cigarette/Vaping Use: Never Used Second Hand Smoke Exposure: No service: No Current occupational status: employed Current occupation: [employer] Current occupational exposures/hazards: No Cognitive needs: No Hearing needs: No Vision needs: Yes (glasses) Questionnaire Thrive Questionnaire Date Thrive assessed: 10/28/22 SILVERIO-7 AMB Questionnaire SILVERIO-7 Date SILVERIO - 7 assessed: 10/28/22 Source: Developed by Drs. Dashawn Chavez, Yanet Martines, Alan Andre and colleagues, with an educational titus from [employer]. Review of Systems Const All systems reviewed & are unremarkable except as noted in HPI and below Eyes Reports no additional complaints, Denies change in vision and Denies other visual disturbances Card Denies chest pain at rest, Denies chest pain with activity, Denies edema, Denies irregular heart rhythm, Denies claudication, Denies dyspnea, Denies dyspnea on exertion, Denies orthopnea, Denies paroxysmal nocturnal dyspnea and Denies slow heart rate Resp Denies cough, Denies dyspnea and Denies dyspnea on exertion GI Denies abdominal pain, Denies change in bowel habits, Denies excessive flatus, D enies nausea and Denies vomiting Denies urinary hesitancy, Denies urinary incontinence and Denies urinary urgency Musc Denies abnormal gait, Denies atrophy, Denies deformity and Denies limited range of motion Skin/Breast Denies bleeding lesions, Denies changing lesions and Denies rash Neuro Denies abnormal gait and Denies lack of coordination Physical exam (Primary Care) Vital Signs: Last Vital Signs BP 132/80 03/05/23 12:55 BMI result Body Mass Index 36.6 Tobacco/Smoking Status: Tobacco use Status Tobacco use date assessed 10/28/22 03/05/23 12:59 Patient Tobacco Use Status Former Tobacco user 03/05/23 12:59 Tobacco use type Cigar 03/05/23 12:59 e-Cigarette/Vaping Use Never Used 03/05/23 12:59 Thrive Assessment: Date of Thrive Assessment Date Thrive assessed 10/28/22 03/05/23 12:59 Eyes General: appearance normal, both eyes and all related structures Eyelids: Yes eyelids normal Conjunctivae: conjunctivae normal Neck Neck: Yes normal visual inspection and Yes supple Resp Effort & Inspection: normal respiratory effort Auscultation: clear to auscultation bilaterally Cardio Jugular venous distension: no JVD Rate: regular rate Rhythm: regular rhythm Heart sounds: S1 normal heart sound present and S2 normal heart sound present Extrem General: Yes full ROM Office Procedures Flu Questionnaire Does the patient have a severe egg allergy?: No Immunizations flu vacc [id number] 6mos up(PF) 60 mcg(15 mcgx4)/0.5 mL IM syringe Performing Provider: Melinda Denny MD [facility] [place] [facility] Documented (not given) by: Awais Almeida Sheila on 03/05/23 13:00 Reason Not Given: Patient Refused Assessment and Plan Assessment & Plan (1) Mixed hyperlipidemia: Code(s): E78.2 - Mixed hyperlipidemia Plan: Start diet and exercise. (2) Severe obstructive sleep apnea: Comment: with nocturnal hypoxemia, average O2 76% Code(s): G47.33 - Obstructive sleep apnea (adult) (pediatric) Plan: Start BiPAP machine. Weight reduction recommended. (3) Class 2 obesity with body mass index (BMI) of 36.0 to 36.9 in adult: Code(s): E66.9 - Obesity, unspecified; Z68.36 - Body mass index [BMI] 36.0-36.9, adult Plan: Start diet and exercise. BMI goal is less than 30. (4) Transaminitis: Code(s): R74.01 - Elevation of levels of liver transaminase levels Plan: Cut down on drinking alcohol. Repeat liver enzymes in 6 months. Orders: Orders Influenza [id number] Immunization Today Z23 - Encounter for immunization Lipid Panel 6 Months E78.5 - Hyperlipidemia, unspecified Comprehensive [place]. Panel Fast 6 Months E78.2 - Mixed hyperlipidemia Medications: New CPAP BiPAP 22/18 cm 1 ea 0RF G47.33 - Obstructive sleep apnea (adult) (pediatric) Coding Level of Care Code Est Pt Level 4 (22767) Diagnoses Mixed hyperlipidemia E78.2 Severe obstructive sleep apnea G47.33 Class 2 obesity with body mass index (BMI) of 36.0 to 36.9 in adult E66.9; Z 68.36 Transaminitis R74.01 Time Spent (min) 23
== END 2023-03-05 13:21 | disposition home or self-care (01) ==
PROVIDERS: PCP Nurse Practitioner Family; Visit Provider Internal Medicine
DX: E78.2 Mixed hyperlipidemia (principal); G47.33 Obstructive sleep apnea (adult) (pediatric); E66.9 Obesity, unspecified; Z68.36 Body mass index [BMI] 36.0-36.9, adult; R74.01 Elevation of levels of liver transaminase levels
CPT/HCPCS: 99214